=== PATIENT | female | born 1980 | race Caucasian/White ===

== ENCOUNTER 2022-08-08 15:33 | Outpatient (CLI) | payer OTHER, SELFPAY ==
--- NOTE | 2022-08-08 15:40 | CRLHL7_ITS ---
For Patients: As a result of the Cures Act, medical imaging exams and procedure reports are released immediately into your electronic medical record. You may view this report before your referring provider. If you have questions, please contact your health care provider. BILATERAL SCREENING MAMMOGRAM WITH COMPUTER-AIDED DETECTION AND TOMOSYNTHESIS TECHNIQUE: CC and MLO views were obtained. These mammographic images have been obtained using full-field digital technique. These mammographic images were interpreted with the benefit of computer-aided detection. Breast tomosynthesis was used in this interpretation. COMPARISON FILM: 01/04/21, 03/15/19, 12/26/16. FINDINGS: There are scattered areas of fibroglandular density. IMPRESSION: There is no radiographic evidence for malignancy. ASSESSMENT: BI-RADS Category 1: Negative RECOMMENDATION: Routine screening mammogram in 1 year. A lay language report of this examination will be provided to the patient. SUSAN HEATON M.D. Diagnostic/Breast Radiologist [email or web address] Transcribed: 08/09/2022, 2:[address]/Dictated by: Susan Heaton MD @ 08/09/2022 8:22:00 AM (Electronically Signed)
== END 2022-08-08 15:34 | disposition home or self-care (01) ==
LOC: MAMMO 15:35
PROVIDERS: PCP Family Medicine; Visit Provider Family Medicine
DX: Z12.31 Encounter for screening mammogram for malignant neoplasm of breast (principal)
CPT/HCPCS: 77063; 77067

== ENCOUNTER 2024-01-15 08:30 | Outpatient (RCR) | payer OTHER, SELFPAY | END 2024-04-15 10:45 | disposition home or self-care (01) | PROVIDERS: PCP Family Medicine; Visit Provider Physician Assistant | DX: N81.89 Other female genital prolapse (principal); R27.8 Other lack of coordination; R10.2 Pelvic and perineal pain; N39.41 Urge incontinence; Z51.89 Encounter for other specified aftercare | CPT/HCPCS: 97110; 97112; 97161; 97535 ==

== ENCOUNTER 2024-01-28 11:46 | Outpatient (CLI) | payer OTHER, SELFPAY ==
--- NOTE | 2024-01-28 16:45 | CRLHL7_ITS ---
For Patients: As a result of the Century Cures Act, medical imaging exams and procedure reports are released immediately into your electronic medical record. You may view this report before your referring provider. If you have questions, please contact your health care provider. Indication: MIGRAINE X8 DAYS, SEEING FLOATIE OFF TO THE SIDES AND DOWN - WORSE W/ MOVEMENT Technique: Multiaxial CT images of the head were obtained before and after 118 cc Isovue 370 IV contrast. Coronal and sagittal reformats were submitted. Comparison: No prior studies are available for comparison at this institution. Findings: The ventricles, sulci and gyri are of normal size, shape and contour. Midline structures are centrally located. No convincing evidence of intra- or extra-axial fluid collections. The calvarium and skull base are unremarkable, with normal aeration of the visualized petrous temporal bones and paranasal sinuses on both sides. Temporomandibular joint degenerative changes on the right side. Partially empty sella. No abnormal postcontrast enhancement. Impression: 1. No radiographic evidence of acute intracranial abnormality. 2. Partially empty sella, raising the possibility of idiopathic intracranial hypertension in the appropriate clinical setting. 3. No pathologic enhancement. Please note that all CT scans at this facility use dose modulation, iterative reconstruction, and/or weight-based dosing when appropriate to reduce radiation dose to as low as reasonably achievable. Dictated by Albert Lynn MD @ 01/29/2024 4:24:43 PM (Electronically Signed)
== END 2024-01-28 11:47 | disposition home or self-care (01) ==
PROVIDERS: PCP Family Medicine; Visit Provider Family Medicine
DX: G43.909 Migraine, unspecified, not intractable, without status migrainosus (principal)
CPT/HCPCS: 70470; 80048; 83735; 84443; 85025; 86140; Q9967

== ENCOUNTER 2024-03-25 16:37 | Outpatient (CLI) | payer OTHER, SELFPAY ==
--- NOTE | 2024-03-25 16:40 | CRLHL7_ITS ---
For Patients: As a result of the Century Cures Act, medical imaging exams and procedure reports are released immediately into your electronic medical record. You may view this report before your referring provider. If you have questions, please contact your health care provider. BILATERAL SCREENING MAMMOGRAM WITH COMPUTER-AIDED DETECTION AND TOMOSYNTHESIS TECHNIQUE: CC and MLO views were obtained. These mammographic images have been obtained using full-field digital technique. These mammographic images were interpreted with the benefit of computer-aided detection. Breast Tomosynthesis was used in this interpretation. COMPARISON FILM: 08/08/22, 09/09/20, 08/09/18. FINDINGS: There are scattered areas of fibroglandular density. IMPRESSION: There is no radiographic evidence for malignancy. ASSESSMENT: BI-RADS Category 1: Negative RECOMMENDATION: Routine screening mammogram in 1 year. A lay language report of this examination will be provided to the patient. Albert Mishra M.D. Diagnostic Radiologist [email or web address] SP/Dictated by: Albert Mishra MD @ 03/26/2024 10:24:00 AM (Electronically Signed)
== END 2024-03-25 16:38 | disposition home or self-care (01) ==
LOC: MAMMO 16:38
PROVIDERS: PCP Family Medicine; Visit Provider Family Medicine
DX: Z12.31 Encounter for screening mammogram for malignant neoplasm of breast (principal)
CPT/HCPCS: 77063; 77067